=== PATIENT | female | born 1960 | race Caucasian/White ===

== ENCOUNTER → 2017-07-03 | Outpatient (CLI) | payer OTHER ==
[~2017-07-03] MED LIST: FERR325T PO; IBUP400T OR; IBUPROFEN 200 MG PO; Ibuprofen PO; TYLENOL XS PO; Vicodin PO
--- NOTE | 2017-07-03 15:36 | REPMRS ---
Patient History The patient states she had a clinical breast exam in June 2017. Family history of breast cancer in paternal aunt at age 50 or over. Taking unspecified hormones. Digital Mammo Screening Bilat: July 03, 2017 - Exam #: [id number] Bilateral CC and MLO view(s) were taken. Technologist: Adry Owen, Technologist Prior study comparison: September 08, 2015, bilateral digital mammo screening bilat performed at [facility]. FINDINGS: There are scattered fibroglandular densities. There has been no change in the appearance of the mammogram from the prior studies. There is a mild amount of scattered fibroglandular density which is fairly symmetric. There is no interval development of dominant mass, architectural distortion, or clustered microcalcification suggestive of malignancy. ASSESSMENT: BI-RADS/ACR category 1 mammogram. Negative. Recommendation Routine screening mammogram in 1 year (for women over age 40). This mammogram was interpreted with the aid of an FDA-approved computer-aided dectection system. Electronically Signed By: Miguelangel Mallory MD 07/03/17 0168
== END ==
LOC: M RAD 14:13
PROVIDERS: ATTEND Physician Assistant
DX: Z12.31 Encounter for screening mammogram for malignant neoplasm of breast (principal)

== ENCOUNTER → 2018-10-09 | Outpatient (CLI) | payer OTHER | LOC: M RAD 09:13 | DX: Z12.31 Encounter for screening mammogram for malignant neoplasm of breast (principal); Z92.0 Personal history of contraception | CPT/HCPCS: 77067 ==

== ENCOUNTER 2019-07-17 13:36 | Emergency (ER) | payer OTHER ==
[~2019-07-17] VITALS: Ht 160 cm; Wt 79.8 kg
[2019-07-17] MEDS ORDERED: LEVO50TA5 PO (13:42)
[2019-07-17 14:40] LABS: BASO # 0.1 10^3/uL (0.0-0.2); BASO % 0.8 % (0.0-1.0); EOS # 0.1 10^3/uL (0.0-0.5); EOS % 1.1 % (0.0-3.0); HEMOGLOBIN 13.3 g/dl (12.0-15.5); LYMPH # 1.6 10^3/uL (1.5-5.0); LYMPH % 24.2 % (24.0-44.0); MEAN CORPUSCULAR HEMOGLOBIN 32.8 pg (27.0-33.0); MEAN CORPUSCULAR HGB CONC 34.1 g/dl (32.0-36.5); MEAN CORPUSCULAR VOLUME 96.1 fl (80.0-96.0); MONO # 0.4 10^3/uL (0.0-0.8); MONO % 6.9 % (0.0-5.0); NEUTROPHILS # 4.3 10^3/uL (1.5-8.5); NEUTROPHILS % 66.7 % (36.0-66.0); PLATELET COUNT, AUTOMATED 179 10^3/uL (150-450); RED BLOOD COUNT 4.06 10^6/uL (4.00-5.40); WHITE BLOOD COUNT 6.4 10^3/uL (4.0-10.0)
[2019-07-17 15:08] LABS: ALBUMIN 4.1 GM/DL (3.2-5.2); ALT/SGPT 28 U/L (12-78); BILIRUBIN,DIRECT 0.1 MG/DL (0.0-0.2); BILIRUBIN,TOTAL 0.6 MG/DL (0.2-1.0); BLOOD UREA NITROGEN 11 MG/DL (7-18); CALCIUM LEVEL 9.6 MG/DL (8.5-10.1); CARBON DIOXIDE LEVEL 28 MEQ/L (21-32); CHLORIDE LEVEL 106 MEQ/L (98-107); CREATININE FOR GFR 0.92 MG/DL (0.55-1.30); GLOMERULAR FILTRATION RATE > 60.0 (>51); GLUCOSE, FASTING 92 MG/DL (70-100); LIPASE 133 U/L (73-393); POTASSIUM SERUM 4.2 MEQ/L (3.5-5.1); SODIUM LEVEL 141 MEQ/L (136-145); TOTAL PROTEIN 7.1 GM/DL (6.4-8.2)
[2019-07-17] MEDS ORDERED: CYCL5TAB PO (15:12)
[2019-07-17] MEDS ORDERED: KETO10TAB PO (15:12)
[2019-07-17] MEDS ORDERED: KETOROLAC 30 MG/ML VIAL (J1885) IM ONE (15:15)
[2019-07-17 15:17] VITALS: BP 131/72
--- NOTE | 2019-07-17 16:09 | REP ---
CT ABDOMEN AND PELVIS WITHOUT CONTRAST: CT abdomen and pelvis was performed without oral or IV contrast. Sagittal and coronal reconstruction images are performed. Visualized lung bases demonstrate mild fibrotic changes. The liver demonstrates a small cyst anteriorly with no other gross abnormality. There is a subcentimeter gallstone in the fundus of the gallbladder without evidence of gallbladder wall edema or biliary dilatation. The spleen is normal in size. Adrenals, pancreas and kidneys are grossly unremarkable. I see no renal ureteral or bladder calculus. There is no evidence of hydroureteronephrosis. There is no abdominal aortic aneurysm. There is mild atherosclerotic calcification. There is no adenopathy, free air or free fluid. No bowel wall thickening is seen. The appendix is normal. A few diverticula are seen of the sigmoid colon without evidence of inflammation. No pelvic mass is seen. Urinary bladder is mildly distended and grossly unremarkable. IMPRESSION: No renal, ureteral or bladder calculus and no hydroureteronephrosis. Normal appendix. Subcentimeter gallstone in the gallbladder without gallbladder wall edema. No free air or free fluid. A few sigmoid diverticula without evidence of diverticulitis. Electronically Signed by Mikhail Urbina MD 07/18/2019 10:47 A
== END 2019-07-17 15:38 | disposition home or self-care (01) ==
LOC: M ED 13:36
DX: K80.20 Calculus of gallbladder without cholecystitis without obstruction (principal); E03.9 Hypothyroidism, unspecified; Z79.890 Hormone replacement therapy
CPT/HCPCS: 36415; 74176; 80048; 80076; 81001; 83690; 85025; 96372; 99284; J1885

== ENCOUNTER → 2019-12-09 | Outpatient (CLI) | payer OTHER ==
[~2019-12-09] MED LIST changes: +CYCL5TAB PO; +KETO10TAB PO; +LEVO50TA5 PO
--- NOTE | 2019-12-09 11:04 | REPMRS ---
Patient History The patient states she had a clinical breast exam in December 2019.Family history of breast cancer at age 50 or over in paternal aunt. Taking unspecified hormones. Digital Woman Screen Mammo: December 09, 2019 - Exam #: [id number] Bilateral CC and MLO view(s) were taken. Technologist: Adry Owen, Technologist Prior study comparison: October 09, 2018, bilateral digital mammo screening bilat, performed at [facility]. July 03, 2017, bilateral digital mammo screening bilat, performed at [facility]. September 08, 2015, bilateral digital mammo screening bilat, performed at [facility]. FINDINGS: There are scattered fibroglandular densities. There has been no change in the appearance of the mammogram from the prior studies. There is a mild amount of scattered fibroglandular density which is fairly symmetric. There is no interval development of dominant mass, architectural distortion, or grouped microcalcification suggestive of malignancy. 3-D tomosynthesis shows no additional findings. Assessment: BI-RADS/ACR category 1 mammogram. Negative Mammogram. Recommendation Routine screening mammogram of both breasts in 1 year (for women over age 40). This patient's Lifetime Breast Cancer Risk is estimated at 11.0 %. This mammogram was interpreted with the aid of an FDA-approved computer-aided dectection system. Electronically Signed By: Miguelangel Mallory MD 12/09/19 1779
== END ==
LOC: M WHC 08:23
PROVIDERS: ATTEND Physician Assistant Medical
DX: Z12.31 Encounter for screening mammogram for malignant neoplasm of breast (principal); Z12.4 Encounter for screening for malignant neoplasm of cervix; Z79.899 Other long term (current) drug therapy
CPT/HCPCS: 77063; 77067; G0101

== ENCOUNTER → 2022-11-10 | Outpatient (CLI) | payer OTHER | LOC: M WHC 15:29 | PROVIDERS: ATTEND Physician Assistant Medical | DX: Z12.31 Encounter for screening mammogram for malignant neoplasm of breast (principal) ==

== ENCOUNTER → 2023-11-14 | Outpatient (CLI) | payer OTHER | LOC: M WHC 08:29 | PROVIDERS: ATTEND Physician Assistant Medical | DX: Z12.31 Encounter for screening mammogram for malignant neoplasm of breast (principal); R92.323 Mammographic fibroglandular density, bilateral breasts ==

== ENCOUNTER → 2024-11-15 | Outpatient (CLI) | payer OTHER ==
[~2024-11-15] MED LIST changes: -CYCL5TAB PO; +CYCL5TAB4 PO
== END ==
LOC: M WHC 09:48
PROVIDERS: ATTEND Physician Assistant Medical
DX: Z12.31 Encounter for screening mammogram for malignant neoplasm of breast (principal); R92.323 Mammographic fibroglandular density, bilateral breasts